=== PATIENT | male | born 1955 | race Caucasian/White ===

== ENCOUNTER 2016-11-27 11:03 | Emergency (ER) | payer BC ==
[2016-11-27 12:09] LABS: BASO % 0.4 % (0.2-1.2); EOS # 0.1 10_X3_uL (0.0-0.5); EOS % 2.7 % (0.8-7.0); GRAN # 3.4 10_X3_uL (1.8-5.4); GRAN % 66.2 % (34.0-67.9); HEMATOCRIT 42.6 % (40-51); HEMOGLOBIN 14.7 g/dL (13.7-17.5); LYMPH # 1.1 10_X3_uL (1.3-3.6); LYMPH % 21.3 % (21.8-53.1); MEAN CORPUSCULAR HEMOGLOBIN 28.8 pg (27.0-33.0); MEAN CORPUSCULAR HGB CONC 34.5 g/dL (32.0-36.0); MEAN CORPUSCULAR VOLUME 83.4 fL (79-92); MEAN PLATELET VOLUME 11.4 fl (7.5-11.5); MONO # 0.5 10_X3_uL (0.3-0.8); MONO % 9.4 % (5.3-12.2); PLATELET COUNT 178 x10_3/uL (163-337); RED BLOOD COUNT 5.11 x10_6/uL (4.6-6.1); RED CELL DISTRIBUTION WIDTH 13.9 % (11.6-14.4); WHITE BLOOD COUNT 5.2 x10_3/uL (4.2-9.1)
[2016-11-27 12:19] LABS: INR 1.1 (1.0-1.1); PARTIAL THROMBOPLASTIN TIME 26.5 SECONDS (21.8-28.4); PROTHROMBIN TIME (PATIENT) 10.8 SECONDS (9.6-10.8)
[2016-11-27 12:25] LABS: ALBUMIN 4.1 gm/dL (3.4-5.0); ALKALINE PHOSPHATASE 96 U/L (50-136); ALT/SGPT 132 U/L (7.53-40.17); AST/SGOT 121 U/L (6.66-35.34); BILIRUBIN,TOTAL 0.83 mg/dL (0.0-1.0); BLOOD UREA NITROGEN 22 mg/dL (7-18); CALCIUM 8.9 mg/dL (8.7-10.7); CARBON DIOXIDE 23 mmol/L (21-32); CREATINE KINASE 62 U/L (35-232); CREATININE 0.8 mg/dL (0.6-1.3); GLUCOSE,RANDOM 353 mg/dL (70-99); POTASSIUM 4.5 mmol/L (3.5-5.1); SODIUM 132 mmol/L (136-145); TOTAL PROTEIN 7.2 gm/dL (6.4-8.2)
== END 2016-11-27 15:15 | disposition short-term general hospital (02) ==
LOC: ER 11:03
PROVIDERS: Internal Medicine
DX: M25.512 Pain in left shoulder (principal); R51 Headache; M25.552 Pain in left hip; R06.02 Shortness of breath; R20.0 Anesthesia of skin; Z79.02 Long term (current) use of antithrombotics/antiplatelets; Z79.899 Other long term (current) drug therapy
CPT/HCPCS: 36415; 70450; 71020; 73030; 73502; 80053; 82550; 82553; 82962; 85025; 85610; 85730; 93005; 99070; 99285-25